=== PATIENT | female | born 1990 | race Two or more races ===

== ENCOUNTER 2024-10-04 05:50 | Day surgery (SDC) | payer OTHER ==
[2024-10-04] MEDS ORDERED: MIDAZOLAM HCL/PF 5 MG/ML VIAL IV ONE (08:15)
[2024-10-04] MEDS ORDERED: DIPHENHYDRAMINE HCL 50 MG/ML VIAL 1ML IV ONE (08:15)
[2024-10-04] MEDS ORDERED: NEXIUM 24HR20 MG PO (08:16)
== END 2024-10-04 09:15 | disposition home or self-care (01) ==
LOC: AMB-ENDOS 05:50
PROVIDERS: ATTEND Surgery
DX: R10.13 Epigastric pain (principal); E66.09 Other obesity due to excess calories; K44.9 Diaphragmatic hernia without obstruction or gangrene; K20.80 Other esophagitis without bleeding; K29.60 Other gastritis without bleeding